=== PATIENT | male | born 1995 | race Caucasian/White ===

== ENCOUNTER 2018-03-18 22:30 | Inpatient (IN) | payer OTHER ==
[~2018-03-18] VITALS: Ht 182.9 cm; Wt 59.9 kg
--- NOTE | 2018-03-19 23:33 | NUR ---
ADMISSION NOTE Pt arrived on the unit at 2333 for medically supervised withdrawal from heroin. Pt reports also using methamphetamine in binges and intermittent cocaine and marijuana. Skin and body check completed, skin intact and no contraband found. Pt provided UDS and lab blood draw. Pt is 59 and weighs 132 lbs. Pt is currently intoxicated from heroin IV and cocaine. Initial COWS deferred d/t pt intoxication. Pt presents with anxiety, restlessness, poor concentration, malaise, slumped posture, disheveled appearance. Pt is ambulatory with steady gait. PEERLA. Respirations even and unlabored, lung sounds clear. Pt reports last BM yesterday. Pt complaining of pain in right eye when he blinks and right eye has been red since this morning. Denies itching, discharge or feeling of foreign body in right eye. Pt also reports muscle cramps in bilateral thighs since this morning. Vital signs: BP 134/96, HR 101, T 98.5, 02 96%, RR 18, and pain 4/10. Substance Use History: 1. Heroin (IV) 0.25-0.5 g daily, last intake of 0.2 g IV on 03/19/18 at 2100, at this rate for 3 weeks. Reports using for a total of 2 years. Reports that he started using oxycontin in the past d/t poor influences, but then switched to heroin since it was cheaper. 2. Methamphetamine (smoke or IV) 0.25 g in binges, last intake of 0.25 g on 03/17/18 in the late evening, at this rate for 1 week. Reports that he started using 3 months ago d/t a friend offering him some while relapsing together. 3. Cocaine (nasal inhalation or crack cocaine oral inhalation) a couple lines, used on an intermittent non-daily basis, last used on 03/19/18 just prior to arrival, at this rate for 2 days. Reports that he has used cocaine nasal inhalation twice and crack cocaine oral inhalation twice since his last sobriety period. 4. Marijuana (oral inhalation) unspecified amounts on an intermittent non-daily basis, last intake of one hit on 03/19/18, at this rate for 3 weeks. Pt reports he used to smoke marijuana a lot everyday in high school, but now uses approximately 2-4 times a week. Pt reports having 5 prior detox treatments and 3 outpatient treatments. All five prior detox have been at [facility] in [place]. Last three times were in December 2017 for 12 days, November 2017 for 7 days and September 2017 for 18 days. Pt reports that he typically relapses shortly after each detox d/t poor influences. Pt states, If Im with a friend who relapses or has stuff on him, I dont have the strength to not use with him. Pt reports going to a sober living (forgot name) in [place] for 1 week after last discharge from [facility] detox and relapsed immediately. Pt reports he was using for 1.5 weeks, was sober for 4 days while visiting his mother in [place] then relapsed again and came here. Pt reports that he has always had a desire to get sober and states, This time Im hoping to try harder and not be so complacent with my life. Pt reports that he uses d/t feelings of low self-esteem. Pt states, I always get so down on myself due to how many times Sally been in and out from sober livings and how I can never get my life together, I dont understand why I cant just get it together. Pt reports difficulty staying sober, states, I usually use because I think to myselfscrew it because I can never get my act together anyways. Pt reports approximately 8-9 attempts of sobriety. Pt reports that his longest period of sobriety was 4.5 months starting January 15, 2017. Pt reports that using has caused him stress, mostly financial. Pt reports that he has difficulty keeping a job and helping his mother with finances. Pt is currently unemployed and technically homeless, tends to stay at sober living facilities. Reports living in [place] for the past year, though is originally from [place], [place]. Pt reports that after discharge he hopes to take his outpatient treatment more serious and will stay at a sober living. Pt reports having a good support system from his family since they are sober and can relate to his substance use. Reports that his mother has history of opioid and cocaine use and his father has history of opiate use. Pt denies hx of withdrawal-induced delirium, seizures, or cardiac complications. Denies history of blackouts or overdoses. Pt reports his typical S/S of withdrawal include: body aches, yawning, runny nose and restless legs. Pt is full code, regular diet, NKA to food or meds, and on fall precautions. Pt reports PMH of anxiety, depression and ADD. Pt did not bring any home medications, but reports that he typically takes gabapentin 600 mg TID while in treatment. Pt reports that he typically smokes regularly while in sober living, but has not smoked in 1 month. Pt reports that he might smoke a few cigarettes while here at detox. Pt reports losing 30 lbs in past 3 months. Pt reports he believes this is related to methamphetamine use. Pt is not a candidate for MRSA, denies being hospitalized or in long-term in past 30 days. Pt denies having a PCP. Encouraged pt to be open and honest in his recovery. Oriented pt to room and unit, educated pt about rules and expectations of the unit including taking of vital signs Q4H and how the use call light. Pt verbalized understanding.
[2018-03-20] VITALS: BP 134/96
--- NOTE | 2018-03-20 | NUR ---
COWS DEFERRED Pt intoxicated, COWS deferred at this time. Pt presents with tachycardia and restlessness.
--- NOTE | 2018-03-20 00:14 | NUR ---
PRE ADMISSION NOTE Pt is a 22 y/o male seen at intake, A&Ox4 and presents with anxiety, restlessness, disheveled appearance, slumped posture, poor eye contact. Pt is intoxicated from heroin IV and cocaine. Pt is ambulatory with steady gait. Vital signs: BP 138/83, HR 130, T 98.5, 02 97%, RR 16, and pain 4/10 (reports muscle cramps in thighs). Pt reports PMH of anxiety, depression and ADD. Pt denies having any home medications. Instructed patient that any controlled substances will not be given back, pt verbalized understanding. Educated pt about policies and rules of the unit including handling of contraband and taking vital signs Q4H. Will continue care of patient upon arrival on unit. Addendum: 03/20/18 at 0133 by PHILIPP HARRIS RN CORRECTION: INTAKE ASSESSMENT AT [id number]
[2018-03-20] MEDS ORDERED: ONDANSETRON ODT 4 MG TAB.RAPDIS SL PRN (00:30)
[2018-03-20] MEDS ORDERED: IBUPROFEN 400 MG TABLET PO PRN (00:30)
[2018-03-20] MEDS ORDERED: DICYCLOMINE HCL 20 MG TABLET PO PRN (00:30)
[2018-03-20] MEDS ORDERED: ONDANSETRON 4 MG/2 ML VIAL IM PRN (00:30)
[2018-03-20] MEDS ORDERED: CLONIDINE HCL 0.1 MG TABLET PO PRN (00:30)
[2018-03-20] MEDS ORDERED: MIRALAX 17 GM POWD.PACK PO PRN (00:30)
[2018-03-20] MEDS ORDERED: MAGNESIUM HYDROXIDE 30 ML LIQUID UDC PO PRN (00:30)
[2018-03-20] MEDS ORDERED: MAG HYDROX/AL HYDROX/SIMETH 30 ML LIQUID UDC PO PRN (00:30)
[2018-03-20] MEDS ORDERED: LOPERAMIDE HCL 2 MG CAPSULE PO PRN ×2 (00:30)
[2018-03-20] MEDS ORDERED: BUPRENORPHINE HCL 2 MG TAB.SUBL SL PRN (00:30)
[2018-03-20] MEDS ORDERED: ACETAMINOPHEN 325 MG TABLET PO PRN (00:30)
--- NOTE | 2018-03-20 00:47 | NUR ---
PRN TYLENOL ADMINISTRATION Pt complaining of pain in right eye when he blinks and muscle cramps in bilateral thighs, overall pain 4/10. Pt requests Tylenol. Safety measures in place. Call light within reach. Will continue to monitor.
[2018-03-20] MEDS ORDERED: GABA600T2 PO (01:16)
[2018-03-20 01:35] LABS: ETHANOL < 3 MG/DL (0-0)
[2018-03-20 01:38] LABS: BASOPHILS % (AUTO) 0.1 % (0.0-2.0); EOSINOPHILS % (AUTO) 0.4 % (0.0-7.0); HEMATOCRIT 45.1 % (36.7-47.1); HEMOGLOBIN 15.9 g/dL (12.5-16.3); LYMPHOCYTES # (AUTO) 1.1 K/uL (20.0-40.0); LYMPHOCYTES % (AUTO) 9.6 % (20.5-51.5); MEAN CORPUSCULAR HEMOGLOBIN 29.3 uug (23.8-33.4); MEAN CORPUSCULAR HGB CONC 35 g/dL (32.5-36.3); MEAN CORPUSCULAR VOLUME 82.9 fL (73.0-96.2); MONOCYTES # (AUTO) 0.8 K/uL (2.0-10.0); MONOCYTES % (AUTO) 7.1 % (0.0-11.0); NEUTROPHILS # (AUTO) 9.5 K/uL (1.8-8.9); NEUTROPHILS % (AUTO) 82.8 % (38.5-71.5); PLATELET COUNT (AUTO) 311 K/uL (152-348); RED BLOOD CELL COUNT(AUTO) 5.44 MIL/uL (4.06-5.63); WHITE BLOOD COUNT (AUTO) 11.4 K/uL (3.6-10.2)
[2018-03-20 01:40] LABS: ALANINE AMINOTRANSFERASE 38 U/L (16-63); ALKALINE PHOSPHATASE 89 U/L (50-136); AMYLASE 35 U/L (25-115); ASPARTATE AMINOTRANSFERASE 66 U/L (15-37); BILIRUBIN,TOTAL 0.9 mg/dL (0.2-1.0); CARBON DIOXIDE 31 mmol/L (21-32); CHLORIDE 100 mmol/L (98-107); CREATININE 1.3 mg/dL (0.6-1.3); GLUCOSE 124 mg/dL (74-106); LIPASE 65 U/L (73-393); MAGNESIUM 2.1 mg/dL (1.8-2.4); POTASSIUM 3.9 mmol/L (3.5-5.1); TOTAL PROTEIN, SERUM 8.2 g/dL (6.4-8.2); UREA NITROGEN, BLOOD 16 mg/dL (7-18)
[2018-03-20 01:44] LABS: THYROID STIMULATING HORMONE 0.142 mIU/mL (0.358-3.740)
--- NOTE | 2018-03-20 01:47 | NUR ---
PRN TYLENOL REASSESSMENT Pt reports pain improved to tolerable level in eye and thighs. Safety measures in place. Call light within reach. Will continue to monitor.
[2018-03-20 02:18] LABS: *AMPHETAMINE, URINE POSITIVE (NEGATIVE); *BARBITURATE, URINE NEGATIVE (NEGATIVE); *CANNABINOID, URINE POSITIVE (NEGATIVE); *COCCAINE, URINE POSITIVE (NEGATIVE); *OPIATE, URINE POSITIVE (NEGATIVE); *PHENCYCLIDINE SCREEN,URINE NEGATIVE (NEGATIVE)
[2018-03-20 04:00] VITALS: BP 131/86
--- NOTE | 2018-03-20 04:00 | NUR ---
COWS DEFERRED Pt intoxicated, COWS deferred at this time. Pt continues to present with tachycardia and restlessness. Pt laying in bed watching TV and states, "I feel wide awake."
--- NOTE | 2018-03-20 07:17 | NUR ---
END OF SHIFT Pt is a 22 y/o male admitted on 03/19/18 for opiate withdrawal. Pt was also using cocaine and methamphetamine. Pt used cocaine nasal inhalation and heroin IV prior to arrival. No ordered taper at this time, had PRN Subutex. Pt presented with anxiety, restlessness, disheveled appearance, slumped posture, poor eye contact, feelings of low self-esteem. Pt also complained of right eye pain/burning with erythema, Tylenol administered. Pt stayed awake through most of the shift, slept one hour. Pt reported that he was not ready for Subutex. All COWS deferred. Pt slept 1 hour. Intake 2065 ml, void x 3, stool x 0. Safety measures in place. Call light within reach. Pts needs have been met. Endorsed to day shift nurse.
[2018-03-20 08:00] VITALS: BP 112/71
--- NOTE | 2018-03-20 08:20 | NUR ---
START OF SHIFT: Received Pt A/O X 4. His pupils are pinpointed . He appears restless and fidgety. He reports some mild muscle aches and generalized body pain 4/10 on scale and mild anxiety but states " I am not dope sick yet".COWS 6. PRN Motrin and PRN Robaxin given to manage muscle aches and body pain. Encouraged increased fluids to assist in facilitate detox process. Will continue to monitor and manage s/s of w/d.
[2018-03-20] MEDS: MULTIVITAMINS,THERAPEUTIC TABLET PO SCH (08:34)
[2018-03-20] MEDS: METHOCARBAMOL 750 MG TABLET PO PRN ×2 (08:34→23:41)
--- NOTE | 2018-03-20 09:20 | NUR ---
PRN Motrin and PRN Robaxin effective. He states his body pain and muscle aches have lessened.
[2018-03-20] MEDS ORDERED: GABA800T2 PO (10:42)
[2018-03-20 12:00] VITALS: BP 119/62
[2018-03-20] MEDS ORDERED: 3 DAY TAPER BUPRENORPHINE -SERENITY PROTOCOL SL PRN (12:30)
[2018-03-20 16:00] VITALS: BP 115/66
[2018-03-20] MEDS ORDERED: Medication Not On Formulary EA (Gabapentin 600 MG) PO SCH (18:15)
[2018-03-20] MEDS: GABAPENTIN 300 MG CAPSULE PO SCH ×2 (18:53→20:36)
--- NOTE | 2018-03-20 18:59 | NUR ---
START OF SHIFT NOTE: Endorsed patient is a 22 year old male presented for Opioid withdrawal under medical supervision. Patient recently on PRN Subutex. Patient is alert and oriented x4, cooperative, with stable gait, soft clear speech. Mood anxious, flat affect. Last COWS=6 at 1600 per day shift nurse report. Patient presented with anxiety, agitation, nervousness, irritability, tremors, myalgia, restlessness, and fatigue. PRN Robaxin PO and PRN Vistaril PO were effective. All needs met. Safe and calm environment provided. Encouraged to intake fluids as tolerated. All needs met. Safety measures: Call light within reach, bed locked in lowest position, padded bed rails up x2. Endorsed by day shift nurse.
--- NOTE | 2018-03-20 18:59 | NUR ---
END OF SHIFT: Pt to start modified Subutex taper tonight per MD. He c/o muscle aches and body pain this morning and some fatigue. He was given PRN Motrin and PRN Robaxin to manage symptoms. Last COWS 6. He slept on and off most of shift. He was compliant with increased fluids. Will pass shift report to oncoming night nurse.
[2018-03-20 20:00] VITALS: BP 140/83
--- NOTE | 2018-03-20 20:00 | NUR ---
START OF SHIFT NOTE: Endorsed patient is a 22 year old male presented for Opioid withdrawal under medical supervision. Patient recenly on PRN Subutex. Patient is alert and oriented x4, cooperative, with satable gait, soft clear speech. Mood anxious, flat affect. Last COWS=6 at 1600 per day shift nurse report. Patient presented with anxiety, agitation, nervousness, irritability, tremors, myalgia, restlessness, and fatigue. PRN Robaxin PO and PRN Vistaril PO were effective. All needs met. Addendum: 03/21/18 at 0724 by MANJULA MARTIN RN wrong time
--- NOTE | 2018-03-20 20:00 | NUR ---
COWS/CIWA ASSESSMENT COWS=9. Patient experienced anxiety, agitation, depression, irritability, nervousness, sweating, fine tremors, flashed face, mild generalized body aches, myalgia, restlessness, fatigue, and yawning. Encouraged to intake fluids as tolerated. Safe and calm environment provided. Encouraged to intake fluids as tolerated. All needs met. Safety measures: Call light within Addendum: 03/21/18 at 0051 by MANJULA MARTIN RN CIWA ASSESSMENT Safety measures: Call light within reach, bed locked in lowest position, padded bed rails up x2. Will continue to monitor closely. Addendum: 03/22/18 at 0237 by MANJULA MARTIN RN COWS ASSESSMENT
[2018-03-20] MEDS ORDERED: BUPRENORPHINE HCL 2 MG TAB.SUBL SL SCH (21:00)
[2018-03-20] MEDS: HYDROXYZINE PAMOATE 25 MG CAPSULE PO PRN (23:41)
--- NOTE | 2018-03-20 23:41 | NUR ---
PRN VISTARIL 25 MG PO AND PRN ROBAXIN 750 MG PO ADMINISTRATION Patient c/o increased anxiety and myalgia. PRN Vistaril 25 mg PO administrated for anxiety at 2341, PRN Robaxin 750 mg PO administrated for myalgia at 2341, as ordered. Patient tolerated well. Safe and calm environment provided. Encouraged to intake fluids as tolerated. All needs met. Safety measures: Call light within reach, bed locked in lowest position, padded bed rails up x2. Will continue to monitor closely.
[2018-03-20] MEDS ORDERED: diphenhydrAMINE 50 MG CAPSULE PO ONE (23:45)
[2018-03-21] VITALS: BP 125/78
--- NOTE | 2018-03-21 | NUR ---
COWS ASSESSMENT COWS=10. Patient experienced anxiety, agitation, depression, irritability, nervousness, sweating, fine tremors, flashed face, general body aches, myalgia, restlessness, fatigue, and yawning. Encouraged to intake fluids as tolerated. Safe and calm environment provided. Encouraged to intake fluids as tolerated. All needs met. Safety measures: Call light within reach, bed locked in lowest position, padded bed rails up x2. Will continue to monitor closely.
--- NOTE | 2018-03-21 00:41 | NUR ---
PRN RE-ASSESSMENT The patient sleeping. Respirations are even and unlabored. RR:16. PRN Vistaril 25 mg PO administrated for anxiety at 2341, PRN Robaxin 750 mg PO administrated for myalgia at 2341, were effective. Safe and calm environment provided. Encouraged to intake fluids as tolerated. All needs met. Safety measures: Call light within reach, bed locked in lowest position, padded bed rails up x2. Will continue to monitor closely.
[2018-03-21 04:00] VITALS: BP 115/63
--- NOTE | 2018-03-21 04:00 | NUR ---
COWS ASSESSMENT COWS=9. Anxious mood, flat affect. Patient noted with anxiety, agitation, depression, irritability, nervousness, sweating, tremors that can be felt, flashed face, nasal congestion, restlessness, fatigue, and yawning. Encouraged to intake fluids as tolerated. Safe and calm environment provided. Encouraged to intake fluids as tolerated. All needs met. Safety measures: Call light within reach, bed locked in lowest position, padded bed rails up x2. Will continue to monitor closely.
--- NOTE | 2018-03-21 07:21 | NUR ---
END OF SHIFT This report given for patient, an 22 year old male presented for Opioid withdrawal, continues 5 day Subutex taper, today is second day. The patient tolerated well. Patient is alert and oriented x4, ambulatory with steady gait, and with soft clear speech, cooperative and verbally appropriate. Patient appears worried, with anxious mood and flat affect. Patient noted disheveled, unkempt, with uncombed hair. Patient reports NKA, is on Full Code, Regular Diet, is on Fall and Seizures Precautions. The patient denies Seizures History. COWS=9 at 2000, COWS=10 at 0000. Last COWS=9 at 0400. Throughout my shift patient experienced anxiety, agitation, depression, irritability, nervousness, tremors, mild body aches, myalgia, stomach cramps, restlessness, sweating, fatigue, and yawning. PRN Vistaril 25 mg PO administrated for anxiety at 2341, PRN Robaxin 750 mg PO administrated for myalgia at 2341, and were effective. Encouraged to attend group activities. Encouraged to intake fluids as tolerated. Educated for non pharmacological method that can be used to help control pain. Patient slept 5 hours, Intake 1,757 ml, void x 4. Safe and calm environment provided. Encouraged to intake fluids as tolerated. All needs met. Safety measures: Call light within reach, bed locked in lowest position, padded bed rails up x2. Endorsed to day shift nurse.
--- NOTE | 2018-03-21 07:30 | NUR ---
START OF SHIFT Pt 22 y/o male admitted for opiate withdrawal. Received in room on bed with eyes closed resting, but easily arousable to name. Alert and oriented to name, place, and time. Perrla. Skin warm and moist to touch. Respirations even and unlabored. Bilateral hand tremors noted. Appears disheveled and unkempt. Dirt under finger nails of both hands noted. Pressured speech. Anxious this morning. Bed sheets appears moist. Encouraged to maintain hygiene. It was reported that pt slept for 5 hours last night. Last cows=9 @0400. Pt is on a 3 day subutex taper and is on day 2. Bed on lowest position with side rails x 2 up for safety. Call light within reach.
[2018-03-21 08:00] VITALS: BP 117/72
--- NOTE | 2018-03-21 08:00 | NUR ---
COWS ASSESSMENT cows=12. bilateral hand tremors. complaints of intermittent perspiration. Anxious and restless. Not able to lay still. Irritable. Pressured speech. Yawned once during assessment. Complaints of body aches. Generalized discomfort.
[2018-03-21 08:06] LABS: HEPATITIS B SURFACE AG Negative (Negative)
[2018-03-21] MEDS: MULTIVITAMINS,THERAPEUTIC TABLET PO SCH (08:56)
[2018-03-21] MEDS: BUPRENORPHINE HCL 2 MG TAB.SUBL SL SCH ×3 (08:56→20:34)
[2018-03-21] MEDS: GABAPENTIN 300 MG CAPSULE PO SCH ×4 (08:56→20:33)
[2018-03-21] MEDS ORDERED: TUBERCULIN,PURIF.PROT.DERIV. 5 TU/0.1 ML TEST ID ONE (09:00)
[2018-03-21 12:00] VITALS: BP 134/62
--- NOTE | 2018-03-21 12:00 | NUR ---
COWS ASSESSMENT cows=12. Bilateral hand tremors noted. Anxious and restless. Intermittent perspiration. Complaints of body aches. Generalized discomfort. Pressured speech noted when talking. Irritable.
--- NOTE | 2018-03-21 13:09 | NUR ---
Therapist prompted client to attend twice daily group therapy sessions and client agreed to do so.
[2018-03-21] MEDS: METHOCARBAMOL 750 MG TABLET PO PRN (14:06)
--- NOTE | 2018-03-21 14:08 | NUR ---
PRN ROBAXIN Complaints of generalized body aches 03/01. Robaxin po prn per MD order given and tolerated well.
--- NOTE | 2018-03-21 15:08 | NUR ---
PRN SHARIF GARZON Pt states body aches 10/30.
[2018-03-21 16:00] VITALS: BP 117/75
--- NOTE | 2018-03-21 16:00 | NUR ---
COWS ASSESSMENT cows=12. Anxious and restless. Pressured speech. Bilateral hand tremors noted. Pt states has generalized discomfort. Complaints of body aches. Irritable.
--- NOTE | 2018-03-21 18:20 | NUR ---
END OF SHIFT Pt 22 y/o male admitted for opiate withdrawal. Alert and oriented to name, place, and time. Perrla. Skin warm and moist to touch. Respirations even and unlabored. Appears disheveled and unkempt. Hair uncombed. Clothes scattered throughout the room. Anxious and restless. Bilateral hand tremors. Complaints of intermittent perspiration. Generalized discomfort. Complaints of intermittent body aches throughout the day. Encouraged to maintain hygiene. Isolative to room with minimal peer interaction. Did not attend group activity. Pt was seen by MD today. Medication compliant. Last cows= 12@1600. Pt is on a 3 day 2. Bed on lowest position with side rails x 2 up for safety. Call light within reach.
--- NOTE | 2018-03-21 18:50 | NUR ---
START OF SHIFT NOTE: The patient is an 22 year male, presented for Opioid withdrawal under medical supervision, continues ordered 3 day Subutex Tape (today is day 2), which tolerated well. Withdrawal symptoms will be closely monitoring. The patient is alert and oriented x4, ambulatory with steady gait, soft clear speech, cooperative, and verbally appropriate. The patient appears sad, worried, difficulty concentrating, with poor eye contact. Anxious mood, and flat affect. Encourage to expressing his feelings, reassuring provided. The most recent COWS=12 AT 1600. Throughout day shift patient experienced moderate withdrawal symptoms such as anxiety, agitation, depression, irritability, nervousness, tremors, nasal congestion, general body aches, myalgia, restlessness, fatigue, and yawning. PRN Robaxin 750 mg PO administrated for myalgia at 1406 was effective per day shift nurse report. Patient remains compliant with treatment, medications, and diet regimen. Encouraged to attend group activities. Encouraged to intake fluids as tolerated. All needs met. Safety measures: Call light within reach, bed locked in lowest position, padded bed rails up x2. Endorsed by outgoing day shift nurse. Will continue to monitor closely.
[2018-03-21 20:00] VITALS: BP 122/87
--- NOTE | 2018-03-21 20:00 | NUR ---
COWS ASSESSMENT COWS=12 at 2000. Patient noted with anxiety, agitation, irritability, flashed face, nervousness, sweating, bilateral slight tremors, restlessness, fatigue, and yawning. Scheduled Subutex SL will be administrated as ordered. Encouraged to intake fluids as tolerated. All needs met. Safety measures: Call light within reach, bed locked in lowest position, padded bed rails up x2. Will continue to monitor closely.
[2018-03-21] MEDS: diphenhydrAMINE 50 MG CAPSULE PO PRN (20:33)
--- NOTE | 2018-03-21 20:33 | NUR ---
PRN BENADRYL 50 MG PO ADMINISTRATION. PRN Benadryl administrated for insomnia at 2032. Patient tolerated well. Encouraged to intake fluids as tolerated. All needs met. Safety measures: Call light within reach, bed locked in lowest position, padded bed rails up x2. Will continue to monitor closely.
--- NOTE | 2018-03-21 21:33 | NUR ---
PRN RE-ASSESSMENT The patient sleeping. Respirations are even and unlabored. RR:14. PRN Benadryl administrated for insomnia at 2032 waseffective. Safe and calm environment provided. Encouraged to intake fluids as tolerated. All needs met. Safety measures: Call light within reach, bed locked in lowest position, padded bed rails up x2. Will continue to monitor closely.
[2018-03-22] VITALS: BP 138/70
--- NOTE | 2018-03-22 | NUR ---
COWS ASSESSMENT COWS=13 at 0000. Patient noted with anxiety, agitation, irritability, nervousness, sweating, mild body aches, myalgia, bilateral slight tremors, restlessness, fatigue, and yawning. Encouraged to intake fluids as tolerated. PRN Robaxin PO and PRN Vistaril PO will be administrated as ordered. All needs met. Safety measures: Call light within reach, bed locked in lowest position, padded bed rails up x2. Will continue to monitor closely.
[2018-03-22] MEDS: METHOCARBAMOL 750 MG TABLET PO PRN ×2 (00:57→12:49)
[2018-03-22] MEDS: HYDROXYZINE PAMOATE 25 MG CAPSULE PO PRN (00:57)
--- NOTE | 2018-03-22 00:57 | NUR ---
PRN VISTARIL 25 MG PO AND PRN ROBAXIN 750 MG PO ADMINISTRATION Patient c/o increased anxiety and myalgia. PRN Vistaril 25 mg PO administrated for anxiety at 2341, PRN Robaxin 750 mg PO administrated for myalgia at 0057, as ordered. Patient tolerated well. Safe and calm environment provided. Encouraged to intake fluids as tolerated. All needs met. Safety measures: Call light within reach, bed locked in lowest position, padded bed rails up x2. Will continue to monitor closely. Addendum: 03/22/18 at 0526 by MANJULA MARTIN RN PRN Vistaril 25 mg PO administrated for anxiety at 0057, PRN Robaxin 750 mg PO administrated for myalgia at 0057, as ordered.
--- NOTE | 2018-03-22 01:57 | NUR ---
PRN RE-ASSESSMENT The patient sleeping. Respirations are even and unlabored. RR:16. PRN Vistaril 25 mg PO administrated for anxiety at 2341, PRN Robaxin 750 mg PO administrated for myalgia at 0057, were effective. Safe and calm environment provided. Encouraged to intake fluids as tolerated. All needs met. Safety measures: Call light within reach, bed locked in lowest position, padded bed rails up x2. Will continue to monitor closely. Addendum: 03/22/18 at 0526 by MANJULA MARTIN RN PRN Vistaril 25 mg PO administrated for anxiety at 0057, PRN Robaxin 750 mg PO administrated for myalgia at 0057 were effective.
--- NOTE | 2018-03-22 04:00 | NUR ---
VS REFUSED, COWS DEFERRED Patient refused VS, COWS deferred due to patient sleeping. Respirations are even and unlabored. Assessment will be done while patient awake. Safe and calm environment provided. All needs met. Safety measures: Call light within reach, bed locked in lowest position, padded bed rails up x2. Will continue to monitor closely.
--- NOTE | 2018-03-22 07:10 | NUR ---
END OF SHIFT Presented patient, 22 year old male, admitted for Opioid withdrawal, continues 5 day Subutex taper, today is third day. The patient tolerated well. Patient is alert and oriented x4, ambulatory with steady gait, and with soft clear speech, cooperative and verbally appropriate. Patient appears sad, worried, with anxious mood and flat affect. Patient noted disheveled, unkempt, with uncombed hair. Throughout my shift patient experienced anxiety, agitation, depression, irritability, nervousness, tremors, mild body aches, myalgia, stomach cramps, restlessness, sweating, fatigue, and yawning. COWS=12 at 2000, COWS=13 at 0000. PRN Benadryl administrated for insomnia at 2032, PRN Vistaril 25 mg PO administrated for anxiety at 56, PRN Robaxin 750 mg PO administrated for myalgia at 56, and were effective. The patient remains compliant with treatment plan, medications, and diet regime. Patient slept 7 hours, Intake 1,582 ml, void x 3. Safe and calm environment provided. Encouraged to intake fluids as tolerated. All needs met. Safety measures: Call light within reach, bed locked in lowest position, padded bed rails up x2. Endorsed to day shift nurse.
--- NOTE | 2018-03-22 07:30 | NUR ---
START OF SHIFT Pt 22 y/o male admitted for opiate withdrawal. Received in room on bed with eyes closed resting, but arousable to name. Perrla. Alert and oriented to name, place, and time. Skin warm and moist to touch. Respirations even and unlabored. Appears disheveled and unkempt. Hair uncombed. Food wrappings and clothes scattered throughout the room. Encouraged to maintain hygiene. Anxious and restless. Generalized discomfort. Complaints of body aches. Bilateral hand tremors noted. Intermittent perspiration. It was reported that pt slept for 7 hours last night. Last cows=12 @2000. Pt is on a 3 day subutex taper and is on day 3. Reported that received vistaril po prn per MD order for anxiety, robaxin po prn per MD order for body aches, and benadryl po prn per MD for insomnia last night. Bed on lowest position with side rails x2 up for safety. Call light within reach.
[2018-03-22 08:00] VITALS: BP 119/59
--- NOTE | 2018-03-22 08:00 | NUR ---
COWS ASSESSMENT cows=12. Bilateral hand tremors noted. Anxious. Irritable. Fidgety. Complaints of generalized body aches, intermittent perspiration, and general discomfort.
[2018-03-22] MEDS ORDERED: BUPRENORPHINE HCL 2 MG TAB.SUBL SL SCH (09:00)
[2018-03-22] MEDS: MULTIVITAMINS,THERAPEUTIC TABLET PO SCH (09:13)
[2018-03-22] MEDS: GABAPENTIN 300 MG CAPSULE PO SCH ×4 (09:13→22:13)
[2018-03-22 12:00] VITALS: BP 126/84
--- NOTE | 2018-03-22 12:00 | NUR ---
COWS ASSESSMENT cows=9. Anxious. Fidgety. Irritable. complaints of intermittent perspiration. Generalized discomfort.
[2018-03-22 16:00] VITALS: BP 136/73
--- NOTE | 2018-03-22 16:00 | NUR ---
COWS ASSESSMENT cows=7. Anxious and restless. Irritable. Generalized discomfort.
--- NOTE | 2018-03-22 18:49 | NUR ---
END OF SHIFT Pt 22 y/o male admitted for opiate withdrawal. Alert and oriented to name, place, and time. Perrla. Skin warm and moist to touch. Respirations even and unlabored. Appears disheveled and unkempt. Hair uncombed. Observed wearing robe all day today. Encouraged to maintain hygiene. Anxious. Irritable. Intermittent perspiration. Generalized discomfort. Isolative to room this morning with minimal peer interaction. Pt selective with group activity. Pt medication compliant. Last cows=7 @1600. Pt completed a 3 day subutex taper. Bed on lowest position with side rails x2 up for safety. Call light within reach.
--- NOTE | 2018-03-22 19:30 | NUR ---
START OF SHIFT Pt is a 22 y/o male admitted on 03/19/18 for opiate withdrawal. Pt was also using methamphetamine. Pt finished a 3 day Subutex taper and is scheduled to be d/c tomorrow. Pt had PRN Robaxin and last COWS 7 during day shift. Upon assessment pt presents with anxiety, restlessness, body aches, intermittent sweats, increased HR, agitation, yawning, unkempt room, and difficultly falling asleep. Medications due. Safety measures in place. Call light within reach. Will continue to monitor.
--- NOTE | 2018-03-22 20:00 | NUR ---
COWS 9 Pt presents with anxiety, restlessness, body aches, intermittent sweats, increased HR, agitation, yawning, unkempt room, and difficultly falling asleep. Pt going for smoke break.
[2018-03-22] MEDS ORDERED: DIPH50CA37 PO (20:37)
[2018-03-22] MEDS ORDERED: HYDR-3895 PO (20:37)
[2018-03-22] MEDS ORDERED: IBUP-1953 PO (20:37)
[2018-03-22] MEDS ORDERED: CLON0.1T14 PO (20:37)
[2018-03-22] MEDS ORDERED: METH-406 PO (20:37)
[2018-03-22] MEDS ORDERED: GABA-534 PO ×2 (20:37)
[2018-03-22] MEDS: diphenhydrAMINE 50 MG CAPSULE PO PRN (22:13)
--- NOTE | 2018-03-22 22:13 | NUR ---
PRN BENADRYL ADMINISTRATION Pt requests sleep aid. Safety measures in place. Will continue to monitor.
--- NOTE | 2018-03-22 23:13 | NUR ---
KAT LEE REASSESSMENT Pt remains awake but appears less restless. Pt reports that he will possibly be able to sleep soon. Safety measures in place. Call light within reach. Will continue to monitor.
[2018-03-23] VITALS: BP 129/87
--- NOTE | 2018-03-23 | NUR ---
COWS 8 Pt presents with anxiety, body aches, increased HR, restlessness, sweats. Pt refuses Robaxin for body aches.
--- NOTE | 2018-03-23 04:00 | NUR ---
COWS DEFERRED AND VITALS REFUSED Pt laying in bed with eyes closed, CIWA deferred, to be assessed when pt is awake per orders. Vitals refused. Respirations even and unlabored. Safety measures in place. Call light within reach. Will continue to monitor.
--- NOTE | 2018-03-23 07:15 | NUR ---
END OF SHIFT Pt is a 22 y/o male admitted on 03/19/18 for opiate withdrawal. Pt was also using methamphetamine. Pt finished a 3 day Subutex taper and is scheduled to be d/c today. Pt presented with anxiety, restlessness, body aches, intermittent sweats, increased HR, agitation, yawning, unkempt room, and difficultly falling asleep. Scheduled medications and PRN Benadryl administered, effective in S/S of withdrawal AEB COWS 9 lowered to COWS 8 during shift. Pt slept 6 hours. Intake 1355 ml, void x 2, stool x 0. Safety measures in place. Call light within reach. Pts needs have been met. Endorsed to day shift nurse.
--- NOTE | 2018-03-23 07:30 | NUR ---
START OF SHIFT Pt 22 y/o male admitted for opiate withdrawal. Received in room on bed with eyes closed resting, but arousable to name. Perrla. Alert and oriented to name, place, and time. Skin warm and dry to touch. Respirations even and unlabored. Appears disheveled and unkempt. Food wrappings scattered throughout the room. Encouraged to maintain hygiene. It was reported that pt slept for 6 hours last night. Complaints of body aches and anxiety this morning, but pt stated," I don't want to take any medications for it this morning." Last cows=8 @0000. Pt completed a 3 day subutex taper. Pt is scheduled to be discharged today.
[2018-03-23 08:00] VITALS: BP 125/60
--- NOTE | 2018-03-23 08:00 | NUR ---
COWS ASSESSMENT cows=6. Anxiety. Agitation. Pt states anxious about discharge and with complaints of body aches.
[2018-03-23] MEDS: MULTIVITAMINS,THERAPEUTIC TABLET PO SCH (08:20)
[2018-03-23] MEDS: GABAPENTIN 300 MG CAPSULE PO SCH (08:21)
--- NOTE | 2018-03-23 09:34 | NUR ---
DISCHARGE Pt 22 y/o male admitted for opiate withdrawal. Perrla. Alert and oriented to name, place, and time. Skin warm and moist to touch. Respirations even and unlabored. VS wnl. Pt denies SI/ HI. No home medications, or belongings in cabinet or cassette noted. Prescriptions and discharge papers packed in pt bag. [place] [facility] [place] No distress noted.
== END 2018-03-23 09:34 | disposition home or self-care (01) | DRG 895 ==
LOC: SRC 03-19 22:48
PROVIDERS: ADMIT Family Medicine Addiction Medicine; ATTEND Family Medicine Addiction Medicine
PROC: HZ2ZZZZ Detoxification Services for Substance Abuse Treatment (ICD-10-PCS; principal; 2018-03-19)
PROC: HZ31ZZZ Individual Counseling for Substance Abuse Treatment, Behavioral (ICD-10-PCS; 2018-03-21)
PROC: HZ41ZZZ Group Counseling for Substance Abuse Treatment, Behavioral (ICD-10-PCS; 2018-03-22)
DX: F11.23 Opioid dependence with withdrawal (principal); F15.23 Other stimulant dependence with withdrawal; F90.9 Attention-deficit hyperactivity disorder, unspecified type; Z59.0 Homelessness; F17.210 Nicotine dependence, cigarettes, uncomplicated; F31.9 Bipolar disorder, unspecified
CPT/HCPCS: 36415; 70030-TC; 80307; 80324; 80349; 80353; 80361; 83690; 83735; 84443; 85025; 86592; 86705; 86803; 87340; 87806; A4663; G0480; Q0163

== ENCOUNTER 2018-04-22 14:53 | Inpatient (IN) | payer OTHER ==
[~2018-04-22] VITALS: Ht 182.9 cm; Wt 63.5 kg
[~2018-04-22 14:53] MED LIST: CLON0.1T14 PO; DIPH50CA37 PO; GABA-534 PO; HYDR-3895 PO; IBUP-1953 PO; METH-406 PO
--- NOTE | 2018-04-22 16:20 | NUR ---
pre-assessment: pt was seen and assessed in intake office, at this time pt is not in acute withdrawal at this time, last use was this morning at 0900 am and it was 4 mg of suboxone. pt's V/S WNL. explained unit protocols and procedures and pt verbalized understanding
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
[2018-04-22] MEDS ORDERED: LOPERAMIDE HCL 2 MG CAPSULE PO PRN ×2 (17:00)
[2018-04-22] MEDS ORDERED: ACETAMINOPHEN 325 MG TABLET PO PRN (17:00)
[2018-04-22] MEDS ORDERED: 4 DAY TAPER BUPRENORPHINE -SERENITY PROTOCOL SL PRN (17:00)
[2018-04-22] MEDS ORDERED: CLONIDINE HCL 0.1 MG TABLET PO PRN (17:00)
[2018-04-22] MEDS ORDERED: MIRALAX 17 GM POWD.PACK PO PRN (17:00)
[2018-04-22] MEDS ORDERED: BUPRENORPHINE HCL 2 MG TAB.SUBL SL PRN (17:00)
[2018-04-22] MEDS ORDERED: DICYCLOMINE HCL 20 MG TABLET PO PRN (17:00)
[2018-04-22] MEDS ORDERED: MAGNESIUM HYDROXIDE 30 ML LIQUID UDC PO PRN (17:00)
[2018-04-22] MEDS ORDERED: ONDANSETRON ODT 4 MG TAB.RAPDIS SL PRN (17:00)
[2018-04-22] MEDS ORDERED: ONDANSETRON 4 MG/2 ML VIAL IM PRN (17:00)
[2018-04-22] MEDS ORDERED: PROMETHAZINE HCL 25 MG TABLET PO PRN (17:00)
[2018-04-22] MEDS ORDERED: METHOCARBAMOL 750 MG TABLET PO PRN (17:00)
[2018-04-22] MEDS ORDERED: HYDROXYZINE PAMOATE 25 MG CAPSULE PO PRN (17:00)
[2018-04-22] MEDS ORDERED: diphenhydrAMINE 50 MG CAPSULE PO PRN (17:00)
[2018-04-22] MEDS ORDERED: MAG HYDROX/AL HYDROX/SIMETH 30 ML LIQUID UDC PO PRN (17:00)
[2018-04-22] MEDS ORDERED: IBUPROFEN 600 MG TABLET PO PRN (17:00)
[2018-04-22] MEDS ORDERED: HYDR28CR67 TP (17:12)
[2018-04-22] MEDS: BUPRENORPHINE HCL 2 MG TAB.SUBL SL SCH ×2 (18:00→20:51)
[2018-04-22 18:49] LABS: BASOPHILS # (AUTO) 0.1 K/uL (0.0-8.0); BASOPHILS % (AUTO) 0.8 % (0.0-2.0); EOSINOPHILS # (AUTO) 0.3 K/uL (0.0-0.7); EOSINOPHILS % (AUTO) 4.6 % (0.0-7.0); HEMATOCRIT 35.6 % (36.7-47.1); HEMOGLOBIN 12.7 g/dL (12.5-16.3); LYMPHOCYTES # (AUTO) 2.5 K/uL (20.0-40.0); LYMPHOCYTES % (AUTO) 34.3 % (20.5-51.5); MEAN CORPUSCULAR HEMOGLOBIN 30.1 uug (23.8-33.4); MEAN CORPUSCULAR HGB CONC 36 g/dL (32.5-36.3); MEAN CORPUSCULAR VOLUME 84.4 fL (73.0-96.2); MONOCYTES # (AUTO) 0.3 K/uL (2.0-10.0); MONOCYTES % (AUTO) 4.5 % (0.0-11.0); NEUTROPHILS # (AUTO) 4.1 K/uL (1.8-8.9); NEUTROPHILS % (AUTO) 55.8 % (38.5-71.5); PLATELET COUNT (AUTO) 292 K/uL (152-348); RED BLOOD CELL COUNT(AUTO) 4.22 MIL/uL (4.06-5.63); WHITE BLOOD COUNT (AUTO) 7.3 K/uL (3.6-10.2)
[2018-04-22 19:04] LABS: ALANINE AMINOTRANSFERASE 24 U/L (16-63); ALKALINE PHOSPHATASE 68 U/L (50-136); ASPARTATE AMINOTRANSFERASE 15 U/L (15-37); BILIRUBIN,TOTAL 0.3 mg/dL (0.2-1.0); CARBON DIOXIDE 27 mmol/L (21-32); CHLORIDE 104 mmol/L (98-107); CREATININE 0.9 mg/dL (0.6-1.3); GLUCOSE 144 mg/dL (74-106); MAGNESIUM 1.7 mg/dL (1.8-2.4); POTASSIUM 3.8 mmol/L (3.5-5.1); UREA NITROGEN, BLOOD 9 mg/dL (7-18)
--- NOTE | 2018-04-22 19:06 | NUR ---
end of shift note: [facility] for [facility]iate/meth withdrawal/dependence. pt has not provided urine for admission protocol. will encourage pt to provide urine. pt with a cows of 6 at this time pt was placed on a 4 day subutex taper and will endorse pt to night stocker nurse
[2018-04-22 19:09] LABS: ETHANOL < 3 MG/DL (0-0)
--- NOTE | 2018-04-22 19:30 | NUR ---
START OF SHIFT Pt is a 23 y/o male admitted on 04/22/18 for opiate withdrawal. Pt also admits to using meth, cocaine, and marijuana. Pt is on a 4 day Subutex taper, starting today. Pt has provided UDS and MRSA specimens. Last COWS 6 and no PRNs administered during day shift. Upon assessment Pt presents with anxiety, agitation, tremors, flushed/clammy skin, isolative, and difficulty falling and staying asleep. Medications due. Safety measures in place. Call light within reach. Will continue to monitor.
[2018-04-22 20:00] VITALS: BP 127/77
--- NOTE | 2018-04-22 20:00 | NUR ---
RONYWA 8 Pt complains of anxiety, agitation, mild body aches, chills, and clammy skin. Safety measures in place. Call light within reach. Will continue to monitor. Addendum: 04/23/18 at 0018 by JACOB HASTINGS RN *COWS 8*
[2018-04-22 20:57] LABS: *AMPHETAMINE, URINE POSITIVE (NEGATIVE); *BARBITURATE, URINE NEGATIVE (NEGATIVE); *CANNABINOID, URINE NEGATIVE (NEGATIVE); *COCCAINE, URINE NEGATIVE (NEGATIVE); *OPIATE, URINE POSITIVE (NEGATIVE); *PHENCYCLIDINE SCREEN,URINE NEGATIVE (NEGATIVE)
[2018-04-22] MEDS ORDERED: MAGNESIUM OXIDE 400 MG TABLET PO ONE (21:00)
[2018-04-23] VITALS: BP 107/47
--- NOTE | 2018-04-23 | NUR ---
COWS 5 Pt found in bed with eyes closed. Py complains of anxiety, agitation, and chills. Safety measures in place. Call light within reach. Will continue to monitor.
[2018-04-23 04:00] VITALS: BP 104/49
--- NOTE | 2018-04-23 04:00 | NUR ---
COWS 6 Pt presents with chills, anxiety, agitation, and mild body aches. safety measures in place. Call light within reach. Will continue to monitor.
--- NOTE | 2018-04-23 07:22 | NUR ---
END OF SHIFT Pt is a 23 y/o male admitted on 04/22/18 for opiate withdrawal. Pt also admits to using meth, cocaine, and marijuana. Pt is on a 4 day Subutex taper, tolerating well. Pt provided all necessary specimens. Pt presented with anxiety, agitation, tremors, flushed/clammy skin, isolative, and difficulty falling and staying asleep. No PRN medication administered during retail shift manager. Last COWS 6. Pt slept 8.5 hours. Intake 450 ml, void x 1, stool x 0. Safety measures in place. Call light within reach. Pt's need have been met. Endorse to day shift nurse.
[2018-04-23 08:00] VITALS: BP 107/57
--- NOTE | 2018-04-23 08:20 | NUR ---
Start Of Shift Patient is a 23 yr old male who was admitted to [facility] on 04/22/18 for a medically supervised withdrawal from Opiates ( Heroin and Suboxone), he has been placed on a 4 day Subutex taper and this is day 2, No PRN medications were given on PM shift, he slept for 9 hours and last COWS was 10. Currently he is still asleep in bed, breathing even and unlabored, call light within reach. Continue to follow Md plan of care and offer support and encouragement as needed.
--- NOTE | 2018-04-23 08:30 | NUR ---
COWS 10 Patient reports body aches, diaphoresis, myalgias, difficulty thinking clearly, lethargy and stuffy nose Scheduled Subutex given with PRN Motrin and Robaxin
--- NOTE | 2018-04-23 08:30 | NUR ---
PRN Robaxin 750mg PO and Motrin 600mg PO given for generalized body aches 12/30
[2018-04-23] MEDS: MULTIVITAMINS,THERAPEUTIC TABLET PO SCH (08:33)
[2018-04-23] MEDS ORDERED: TUBERCULIN,PURIF.PROT.DERIV. 5 TU/0.1 ML TEST ID ONE (09:00)
[2018-04-23] MEDS ORDERED: BUPRENORPHINE HCL 2 MG TAB.SUBL SL SCH (09:00)
--- NOTE | 2018-04-23 09:30 | NUR ---
PRN Reassess Patient states that the medication was effective, body aches reduced to pain level 3/10
--- NOTE | 2018-04-23 12:00 | NUR ---
COWS 9 Patient reports body aches, diaphoresis, myalgias, difficulty thinking clearly, lethargy and stuffy nose
[2018-04-23 12:22] VITALS: BP_SYST 103; BP_DIAS 118; BP_DIAS 48
[2018-04-23] MEDS: BUPRENORPHINE HCL 2 MG TAB.SUBL SL SCH ×2 (14:16→21:14)
[2018-04-23 16:00] VITALS: BP 113/62
--- NOTE | 2018-04-23 16:00 | NUR ---
COWS 9 Patient reports body aches, diaphoresis, myalgias, difficulty thinking clearly, lethargy and stuffy nose
--- NOTE | 2018-04-23 19:12 | NUR ---
End Of Shift Patient is a 23 yr old male who was admitted to [facility] on 04/22/18 for a medically supervised withdrawal from Opiates ( Heroin and Suboxone), he has been placed on a 4 day Subutex taper and this is day 2, PRN medications given on this shift : Motrin and Robaxin, last COWS was 9 @ 1600. He had a fluid intake of 1006 ML, 3 Voids and 1BM. Patients withdrawal symptoms consist of diaphoresis, anhedonia, restlessness, fatigue and irritability Continue to follow MD plan of care and offer support and encouragement as needed. Endorsed to table games shift manager.
--- NOTE | 2018-04-23 19:48 | NUR ---
START OF SHIFT NOTE Rcvd report from outgoing nurse. Pt is a 23 y/o male A/O to person, place, time, and purpose. Pt was admitted for medically supervised withdrawal from Opiates. Pt is on day 2 of a 4 day Subutex taper. Pt has been presenting w/ anxiety, flat affect, depressed and withdrawn mood, chills, sweats, hot flashes, tremors, stuffiness, and restlessness. Pt has been isolative and not attending group therapy sessions. PRN Motrin and Robaxin were given and noted effective by outgoing nurse. Last COWS 9 @ 1600. Call light is within reach. Pt will continue o be monitored and needs met.
[2018-04-23 20:10] VITALS: BP 121/67
--- NOTE | 2018-04-23 20:10 | NUR ---
COWS ASSESSMENT COWS 10. . Pt has been presenting w/ anxiety, flat affect, depressed and withdrawn mood, chills, sweats, hot flashes, tremors, stuffiness, and restlessness. V/S: T:98.1, P:84, RR:16, SPO2:99, BP:121/67
--- NOTE | 2018-04-24 00:09 | NUR ---
COWS DEFERRED. V/S REFUSED Pt is in bed w/ his eyes closed. Pt's respirations are unlabored and even.
--- NOTE | 2018-04-24 04:08 | NUR ---
COWS DEFERRED. V/S REFUSED Pt is in bed w/ his eyes closed. Pt's respirations are unlabored and even.
--- NOTE | 2018-04-24 07:10 | NUR ---
END OF SHIFT NOTE Endorsed pt to oncoming nurse. Pt is a 23 y/o male A/O to person, place, time, and purpose. Pt was admitted for medically supervised withdrawal from Opiates. Pt completed day 2 of a 4 day Subutex taper. Pt continues presenting w/ anxiety, flat affect, depressed and withdrawn mood, chills, sweats, hot flashes, tremors, stuffiness, and restlessness. Pt has been isolative. Pt denies any S/I or H/I. No PRN medications were given to the pt during the current shift. Pts fluid intake was 1500ml and he slept for 9hrs. Last COWS 10 @ 2000. Call light is within reach.
[2018-04-24 08:00] VITALS: BP 124/61
--- NOTE | 2018-04-24 08:00 | NUR ---
Start Of Shift / COWS 14 Received 23 y/o M admitted on 04/22/18 for medically supervised opiate withdrawal. Pt continues on a 4 day subutex taper that started on 04/22/18 and tolerating well. Pt has a disheveled appearance, room is unkempt, odorous. Pt is isolative, withdrawn, flat affect, has poor eye contact and depressive mood. Presents generalized body aches, anxiety, agitation, restlessness, sweating, clammy skin, pupils larger than normal, intermittend piloerrection of the skin, hot/cold flashes. Encouraged pt to maintain personal hygiene and verbalize feelings regarding situation. Last COWS 10, no prns given during aircraft machinist helper and pt slept 9 hrs. Side rails upx2, bed in lowest position. Call light is within reach. Will continue to monitor.
[2018-04-24 08:14] LABS: HEPATITIS B SURFACE AG Negative (Negative)
[2018-04-24] MEDS: MULTIVITAMINS,THERAPEUTIC TABLET PO SCH (09:10)
[2018-04-24] MEDS: BUPRENORPHINE HCL 2 MG TAB.SUBL SL SCH ×3 (09:10→21:33)
[2018-04-24 09:17] LABS: CREATININE 0.8 mg/dL (0.6-1.3); MAGNESIUM 1.9 mg/dL (1.8-2.4); POTASSIUM 4.4 mmol/L (3.5-5.1)
--- NOTE | 2018-04-24 10:26 | NUR ---
Therapist prompted client to attend group therapy
--- NOTE | 2018-04-24 12:00 | NUR ---
COWS 14 Pt remains isolative in room and withdrawn, has flat affect and poor eye contact. Continues to presents generalized body aches, anxiety, agitation, restlessness, sweating, clammy skin, pupils larger than normal, intermittent piloerection of the skin, hot/cold flashes. Refuses prns at this time. Will continue to monitor.
[2018-04-24 12:24] VITALS: BP 110/60
--- NOTE | 2018-04-24 14:44 | NUR ---
Therapist prompted client to attend all group therapy sessions.
[2018-04-24 16:00] VITALS: BP 105/87
--- NOTE | 2018-04-24 16:30 | NUR ---
COWS 14 Pt continues to be isolative in room and withdrawn. Continues to presents generalized body aches, anxiety, agitation, restlessness, sweating, clammy skin, pupils larger than normal, intermittent piloerection of the skin, hot/cold flashes. Refuses prns, Scheduled med to be given. Will continue to monitor.
--- NOTE | 2018-04-24 19:23 | NUR ---
End Of Shift Pt has been isolative in room, and withdrawn during shift. Pt continues on a 4 day subutex taper and tolerating well. No prns given. Last COWS 14. Encouraged pt to verbalize feelings and attend groups. Safety measure in place.
--- NOTE | 2018-04-24 19:40 | NUR ---
Start of Shift Note Received a 23 y/o male px , admitted for medically supervised withdrawal from opiates. He is also using methamphetamine, cocaine and marijuana. He was placed on 4 day Subutex taper started on 04/22/2018. He is tolerating it. Last reported COWS 14 by AM shift nurse. During the rounds at 1940, px is awake on bed in left side lying position. Few drinks noted on top of the bed side table. Px appears anxious and depressed. He is disheveled with flat affect and poor eye contact. He states that his anxiety is 5/10 and has body aches of 4/10. He also has stomach cramps, stuffy nose, and chills. Yawning noted. Bed side on lowest position, side rails up 2x , and call light within reach. Well continue to monitor.
[2018-04-24 20:00] VITALS: BP 98/60
--- NOTE | 2018-04-24 20:00 | NUR ---
COWS 10 On assessment, px appears anxious and depressed. He states that his anxiety is 5/10 and has body aches of 4/10. He also has stomach cramps, stuffy nose, and chills. Yawning noted. CT= 78. will continue to monitor
[2018-04-25] VITALS: BP 101/66
--- NOTE | 2018-04-25 | NUR ---
COWS deferred COWS deferred due to the px is asleep, to assess if the px is awake per doctor's order. will continue to monitor
[2018-04-25 04:00] VITALS: BP 110/67
--- NOTE | 2018-04-25 04:00 | NUR ---
COWS deferred COWS deferred due to the px is asleep, to assess if the px is awake per doctor's order. will continue to monitor
--- NOTE | 2018-04-25 07:10 | NUR ---
End of Shift Note During the shift, px stayed in the room most of the time. He smoked once. No PRN medications given. Oral intake is 1000 ml, voided 2x, No BM. Slept for 8 hours. Last COWS 10. Bed side on lowest position, side rails up 2x , and call light within reach. Well continue to monitor. Px endorsed to AM shift nurse
--- NOTE | 2018-04-25 07:30 | NUR ---
START OF SHIFT Endorse rcvd from ongoing nurse, client is in room, he sounds asleep, easy to arouse. dark [place] under eyes, pale and clammy skin noted. Client had an uneventful night, he slept 8 hrs. Last COWS 10. Client is on last of 4 day Subutex taper. [place] precautions. Call light within reach.
[2018-04-25 08:00] VITALS: BP 98/58
[2018-04-25] MEDS ORDERED: BUPRENORPHINE HCL 2 MG TAB.SUBL SL SCH (09:00)
--- NOTE | 2018-04-25 09:51 | NUR ---
MARCY Key is in bed, in a position, eyes closed, dark [place] under eyes noted, clammy skin and tremors. Client report feeling feverish, shaky, body aches and nauseous, but he is not ready to start his taper medication, he said, "I know my body, I'm not there yet, I'll let you know." Encourage client to inform staff for any change of condition and to increase PO fluid as tolerated to facilitate detox. CN notified. Call light within reach. Addendum: 04/25/18 at 1009 by RUSSELL CANALES RN wrong client
[2018-04-25] MEDS: MULTIVITAMINS,THERAPEUTIC TABLET PO SCH (10:14)
--- NOTE | 2018-04-25 10:14 | NUR ---
COWS 12 Client is in bed, presents with a depressed, anxious mood, flat affect, tremors felt, goosebump, clammy skin, and difficulty concentrating. Client reports feeling really tired, muscle and body aches, chills, cold, shaking, and stomach cramps. Last dose of Subutex 2mg SL administered. Encourage client to increase PO fluid to maintain bowel health and facilitate detox. Call light within reach.
--- NOTE | 2018-04-25 12:35 | NUR ---
COWS 6 Client report generalize body aches 4/10, but declines PRN meds at this time, he also reports anxiety, irritability, stomach cramps, decreased appetite, and fatigue. Will continue to monitor. Call light within reach.
[2018-04-25 12:37] VITALS: BP 125/67
[2018-04-25 16:00] VITALS: BP 114/63
--- NOTE | 2018-04-25 16:10 | NUR ---
COWS 4 Client report anxiety, irritability, stomach cramps, decreased appetite, and fatigue. Comfort measures rendered. Will continue to monitor. Call light within reach.
--- NOTE | 2018-04-25 19:03 | NUR ---
END OF SHIFT Client continues to report anxiety, stomach cramps, poor appetite, and fatigue. Last COWS 6 @ 1600.Client completed 4 day Subutex taper. Client is scheduled for discharge tomorrow am. Client is not compliant with group therapy. Adequate PO fluid intake 1710mL, void x5. Consumes 50-75% of meals. [place] precautions in place. Call light within reach.
--- NOTE | 2018-04-25 19:30 | NUR ---
Start of shift Patient is a 23 year old male admitted on 04/22/2018. Patient is here at [facility] for medically supervised withdrawal from Opiates. Patient is on a 4 day Subutex taper. Patient is Patients last COWS is 4. Per endorsement patient received no PRN medications during day shift. Patient is on fall precautions. Patient is set for discharge for tomorrow 04/26/2018. Upon rounds patient was noted in bed watching tv and seemed isolated with flat affect and depressed. Patient did not participate in group. Reviewed plan of care with patient and he verbalized understanding. Respirations are even and unlabored. Safety measures in place, bed lock in low position, side rails up x2, and call light within reach. Will continue to monitor.
[2018-04-25 20:00] VITALS: BP 110/55
--- NOTE | 2018-04-25 20:00 | NUR ---
COWS Assessment Patient is displaying s/s of withdrawal as follow: chills, anxiety, agitation and tremors. Patients COWS is 4. Respirations are even and unlabored. Safety measures in place, will continue to monitor.
[2018-04-26] VITALS: BP 108/69
--- NOTE | 2018-04-26 | NUR ---
COWS Deferred Patient is noted resting in bed with eyes closed, respirations are even and unlabored. Per protocol patient is to be assessed while awake for COWS. Safety measures in place will continue to monitor.
[2018-04-26 04:00] VITALS: BP 112/74
--- NOTE | 2018-04-26 07:17 | NUR ---
End of shift Patient is a 23 year old male admitted on 04/22/2018. Patient is here at [facility] for medically supervised withdrawal from Opiates. Patient was on a 4 day Subutex taper. Patients last COWS is 4. Patient did not receive any PRN medications during this shift. Patient is on fall precautions. Patient is set for discharge for today 04/26/2018. Patient slept for 7 hours and had a total intake of 1,000ml. Patient voided x2 and had no bowel movements. Respirations are even and unlabored. Safety measures in place, bed lock in low position, side rails up x2, and call light within reach. Will continue to monitor.
--- NOTE | 2018-04-26 07:30 | NUR ---
Start of Shift Biology Laboratory Assistant received report on 23 year old male admitted to [facility] on 04/22/18 for medical management of Opiate withdrawals. Pt endorses NKA, full code and regular diet. Pt endorses a PMH of seborrheic dermatitis impaction. Pt denies any PPH. Pt has completed a 4 day Subutex taper and is preparing for discharge this morning. Pt did request any PRN medication on NOC, per report. Biology Laboratory Assistant encounters pt in pts room with pt resting with eyes closed. Even and unlabored respiration noted. Bed in low position with wheels locked and side rails up x2. Will continue to monitor, support and encourage according to plan of care.
--- NOTE | 2018-04-26 08:30 | NUR ---
COWS 5 Pt is anxious and irritable, restless with moist skin. Will continue to monitor, support and encourage according to plan of care.
[2018-04-26] MEDS: MULTIVITAMINS,THERAPEUTIC TABLET PO SCH (08:46)
[2018-04-26 09:24] VITALS: BP 118/69
--- NOTE | 2018-04-26 09:35 | NUR ---
Discharge Assessment Pt A/O x4 and able to make needs known. Pt with a clear thought and clear speech process. Pt with a flat affect and clear speech pattern. Pt is angry, irritable and labile. Pt is angry about discharge and will be discharging home. Pt denies SI/HI or A/VH. Pts last CIWA 3. Extension Work Director educated pt on discharge paperwork, to include, educational material, medication education and results of labs and diagnostic tests. Pt educated on name, route, dose, time and indication of all prescribed medications. Pt proved with prescriptions and copies of all discharge paperwork. Pt was returned all personal belongings, and pt signed for. Pt escorted to main lobby for discharge.
== END 2018-04-26 09:35 | DRG 895 ==
LOC: SRC 16:01
PROVIDERS: ADMIT Family Medicine Addiction Medicine; ATTEND Family Medicine Addiction Medicine
PROC: HZ2ZZZZ Detoxification Services for Substance Abuse Treatment (ICD-10-PCS; principal; 2018-04-22)
PROC: HZ31ZZZ Individual Counseling for Substance Abuse Treatment, Behavioral (ICD-10-PCS; 2018-04-24)
PROC: HZ41ZZZ Group Counseling for Substance Abuse Treatment, Behavioral (ICD-10-PCS; 2018-04-25)
DX: F11.23 Opioid dependence with withdrawal (principal); Z59.0 Homelessness; F17.210 Nicotine dependence, cigarettes, uncomplicated; F90.9 Attention-deficit hyperactivity disorder, unspecified type; F12.20 Cannabis dependence, uncomplicated; F15.23 Other stimulant dependence with withdrawal; F31.9 Bipolar disorder, unspecified
CPT/HCPCS: 36415; 70030-TC; 80307; 83735; 85025; 86592; 86705; 86803; 87340; 87806; G0480